=== PATIENT | female | born 1965 | race Two or more races ===

== ENCOUNTER 2018-10-04 12:43 | Day surgery (SDC) | payer OTHER ==
[2018-10-04] MEDS ORDERED: FENTAnyl 50 MCG/ML VIAL (14:58)
[2018-10-04] MEDS ORDERED: MIDAZOLAM 1 MG/ML 2 ML INJ ×2 (14:58)
== END 2018-10-04 15:40 | disposition home or self-care (01) ==
LOC: GIL 12:43
DX: Z12.11 Encounter for screening for malignant neoplasm of colon (principal); D12.5 Benign neoplasm of sigmoid colon; K64.8 Other hemorrhoids; K21.9 Gastro-esophageal reflux disease without esophagitis
CPT/HCPCS: 43239; 88305